=== PATIENT | female | born 1960 | race Two or more races ===

== ENCOUNTER 2024-10-01 07:41 | Outpatient (CLI) | payer OTHER | END 2024-10-01 07:53 | disposition home or self-care (01) | LOC: MRI 07:41 | PROVIDERS: ATTEND Obstetrics & Gynecology | DX: D25.9 Leiomyoma of uterus, unspecified (principal) | CPT/HCPCS: 72197; Q9965 ==

== ENCOUNTER 2025-01-23 19:35 | Inpatient (IN) | payer OTHER ==
[~2025-01-23] VITALS: Ht 157.5 cm; Wt 63.5 kg
[2025-01-23] MEDS ORDERED: BISOPROLOL FUM2.5 MG PO (19:55)
[2025-01-23] MEDS ORDERED: BUSPIRONE HCL5 MG PO (19:55)
[2025-01-23] MEDS ORDERED: TRILIPIX45 MG PO (19:56)
[2025-01-23 22:31] LABS: BASO % 0.6 % (0.1-1.2); EOS # 0.37 (0.04-0.54); EOS % 4.7 % (0.7-7.0); HEMATOCRIT 36.4 % (34.1-44.9); HEMOGLOBIN 12.4 g/dL (11.2-15.7); LYMPH # 2.96 (1.18-3.74); LYMPH % 37.9 % (19.3-53.1); MEAN CORPUSCULAR HEMOGLOBIN 30.2 pg (25.6-32.2); MONO # 0.79 (0.24-0.82); MONO % 10.1 % (4.7-12.5); NEUT # 3.61 (1.56-6.13); NEUT % 46.4 % (34.0-71.1); PLATELET COUNT 212 K/uL (163-369); RED BLOOD COUNT 4.11 M/uL (3.93-5.22); RED CELL DISTRIBUTION WIDTH 13.4 % (11.6-14.4)
[2025-01-23 22:59] LABS: ALBUMIN 3.7 gm/dL (3.4-5.0); BILIRUBIN TOTAL 0.15 mg/dL (0.3-1.2); CALCIUM 9.5 mg/dL (8.5-10.1); CREATININE SERUM 0.76 mg/dL (0.55-1.02); GFR 76.37; GLOBULINA 3.9 G/DL (2.4-3.5); POTASSIUM 3.6 mEq/L (3.5-5.1); TOTAL PROTEIN 7.6 gm/dL (6.4-8.2)
[2025-01-24] MEDS ORDERED: NITROGLYCERIN 0.4 MG/HR PATCH.TD24 TD STA (01:02)
[2025-01-24] MEDS ORDERED: NITROGLYCERIN 0.4 MG/HR PATCH.TD24 TD ONE (01:36)
[2025-01-24] MEDS ORDERED: ENOXAPARIN SODIUM 60 MG/0.6 ML SYRINGE SUBCUTANEO SCH (17:34)
[2025-01-24] MEDS ORDERED: ATORVASTATIN CALCIUM 40 MG TABLET PO SCH (17:35)
[2025-01-24] MEDS ORDERED: ACETAMINOPHEN 500 MG GEL..CAP PO PRN (17:45)
[2025-01-24] MEDS ORDERED: NITROGLYCERIN IN 5 % DEXTROSE 250 ML IV SCH (17:45)
[2025-01-24] MEDS ORDERED: ASPIRIN 325 MG TABLET PO ONE (17:45)
[2025-01-24] MEDS ORDERED: TICAGRELOR 90 MG TABLET PO ONE ×2 (17:45→19:27)
[2025-01-24] MEDS ORDERED: 0.9 % SODIUM CHLORIDE 1,000 ML IV SCH (17:45)
[2025-01-24] MEDS ORDERED: NITROGLYCERIN IN 5 % DEXTROSE 50 MG/250 ML BOTTLE IV ONE (19:27)
[2025-01-24] MEDS ORDERED: ENOXAPARIN SODIUM 60 MG/0.6 ML SYRINGE SUBCUTANEO ONE (19:53)
[2025-01-24 20:18] LABS: PROTHROMBIN TIME 10.9 SECONDS (9.0-11.5)
[2025-01-24 20:20] LABS: D DIMER 0.37 MG/L; PARTIAL THROMBOPLASTIN TIME 24.5 SECONDS (22.0-34.0)
[2025-01-24 20:28] VITALS: BP 138/52; O2SAT 99
[2025-01-24 21:53] VITALS: BP 117/50; O2SAT 98
[2025-01-24 23:40] VITALS: BP 108/44; O2SAT 97
[2025-01-25] VITALS (13 sets, daily range): BP systolic 100–123; BP diastolic 44–68; O2SAT 96–100
[2025-01-25] MEDS ORDERED: TICAGRELOR 90 MG TABLET PO SCH (05:00)
[2025-01-25 06:58] LABS: CHOL HDL RATIO 4.3 (0-5.0); TSH 1.63 uIU/mL (0.358-3.74)
[2025-01-25] MEDS ORDERED: ASPIRIN 81 MG TAB.CHEW PO SCH (09:00)
[2025-01-25] MEDS ORDERED: FAMOTIDINE/PF 20 MG in 0.9 % SODIUM CHLORIDE 8 ML IV PUSH SCH ×2 (09:00→21:00)
[2025-01-25] MEDS ORDERED: PATIENTS OWN MEDICATION (MEDICAMENTO EN PISO) PO SCH (09:00)
[2025-01-25] MEDS ORDERED: BUSPIRONE HCL 5 MG TABLET PO SCH (09:00)
[2025-01-25 14:48] LABS: ALBUMIN 3.8 gm/dL (3.4-5.0); BILIRUBIN TOTAL 0.57 mg/dL (0.3-1.2); CALCIUM 9.4 mg/dL (8.5-10.1); CREATININE SERUM 0.7 mg/dL (0.55-1.02); GFR 83.98; GLOBULINA 3.6 G/DL (2.4-3.5); POTASSIUM 3.76 mEq/L (3.5-5.1); TOTAL PROTEIN 7.4 gm/dL (6.4-8.2)
[2025-01-25 15:08] LABS: BASO % 0.7 % (0.1-1.2); EOS % 2.7 % (0.7-7.0); HEMATOCRIT 38.7 % (34.1-44.9); HEMOGLOBIN 13.1 g/dL (11.2-15.7); LYMPH # 1.58 (1.18-3.74); LYMPH % 21.2 % (19.3-53.1); MEAN CORPUSCULAR HEMOGLOBIN 29.7 pg (25.6-32.2); MONO # 0.81 (0.24-0.82); MONO % 10.9 % (4.7-12.5); NEUT # 4.79 (1.56-6.13); NEUT % 64.4 % (34.0-71.1); PLATELET COUNT 228 K/uL (163-369); RED BLOOD COUNT 4.41 M/uL (3.93-5.22)
[2025-01-26] VITALS (8 sets, daily range): BP systolic 93–123; BP diastolic 51–73; O2SAT 95–98
[2025-01-26] MEDS ORDERED: ISOSORBIDE MONONITRATE 30 MG TABLET PO SCH (09:00)
[2025-01-26] MEDS ORDERED: ATORVASTATIN CALCIUM 40 MG TABLET PO SCH (09:00)
[2025-01-26] MEDS ORDERED: APIXABAN 5 MG TABLET PO SCH (09:00)
[2025-01-26] MEDS ORDERED: PANTOPRAZOLE SODIUM 40 MG TABLET.DR PO SCH (21:00)
[2025-01-27 00:51] VITALS: O2SAT 97; O2SAT 98
[2025-01-27 01:26] VITALS: BP 105/63; O2SAT 97
[2025-01-27 05:00] VITALS: O2SAT 95
[2025-01-27] MEDS ORDERED: ELIQUIS5 MG PO (07:53)
[2025-01-27] MEDS ORDERED: TRILIPIX45 MG PO (07:53)
[2025-01-27] MEDS ORDERED: BUSPIRONE HCL5 MG PO (07:54)
[2025-01-27] MEDS ORDERED: PANTOPRAZOLE SO40 MG PO (07:54)
[2025-01-27] MEDS ORDERED: POM (MEDICAMENTO EN PO (07:54)
[2025-01-27 09:42] VITALS: BP 116/69; O2SAT 97
== END 2025-01-27 11:58 | disposition home or self-care (01) | DRG 66 ==
LOC: ER 20:27 → ICU-2 01-24 17:48 → MEDI 01-25 14:24
PROVIDERS: General Practice; Preventive Medicine Public Health & General Preventive Medicine; ADMIT Internal Medicine; ATTEND Internal Medicine
PROC: B020ZZZ Computerized Tomography (CT Scan) of Brain (ICD-10-PCS; 2025-01-23)
PROC: 4A12X4Z Monitoring of Cardiac Electrical Activity, External Approach (ICD-10-PCS; 2025-01-23)
PROC: B030ZZZ Magnetic Resonance Imaging (MRI) of Brain (ICD-10-PCS; principal; 2025-01-24)
PROC: B246ZZZ Ultrasonography of Right and Left Heart (ICD-10-PCS; 2025-01-24)
PROC: B345ZZZ Ultrasonography of Bilateral Common Carotid Arteries (ICD-10-PCS; 2025-01-24)
PROC: B348ZZZ Ultrasonography of Bilateral Internal Carotid Arteries (ICD-10-PCS; 2025-01-24)
DX: I63.331 Cerebral infarction due to thrombosis of right posterior cerebral artery (principal); I48.0 Paroxysmal atrial fibrillation; I10 Essential (primary) hypertension; E78.5 Hyperlipidemia, unspecified; F41.9 Anxiety disorder, unspecified
CPT/HCPCS: 70544

== ENCOUNTER 2025-02-02 09:20 | Emergency (ER) | payer OTHER ==
[~2025-02-02] VITALS: Ht 157.5 cm; Wt 62.6 kg
[~2025-02-02 09:20] MED LIST: BISOPROLOL FUM2.5 MG PO; BUSPIRONE HCL5 MG PO; ELIQUIS5 MG PO; PANTOPRAZOLE SO40 MG PO; POM (MEDICAMENTO EN PO; TRILIPIX45 MG PO
[2025-02-02] MEDS ORDERED: ONDANSETRON HCL 2 MG/ML VIAL IV ONE (11:15)
[2025-02-02] MEDS ORDERED: ONDANSETRON HCL 2 MG/ML VIAL ONE (11:15)
[2025-02-02 11:50] LABS: BASO % 0.7 % (0.1-1.2); EOS # 0.13 (0.04-0.54); EOS % 1.7 % (0.7-7.0); HEMOGLOBIN 13.7 g/dL (11.2-15.7); LYMPH # 1.72 (1.18-3.74); MEAN CORPUSCULAR HEMOGLOBIN 30.5 pg (25.6-32.2); MONO # 0.59 (0.24-0.82); MONO % 7.9 % (4.7-12.5); NEUT # 4.97 (1.56-6.13); NEUT % 66.4 % (34.0-71.1); PLATELET COUNT 247 K/uL (163-369); RED BLOOD COUNT 4.49 M/uL (3.93-5.22); RED CELL DISTRIBUTION WIDTH 13.1 % (11.6-14.4)
[2025-02-02 12:32] LABS: ALBUMIN 3.8 gm/dL (3.4-5.0); BILIRUBIN TOTAL 0.3 mg/dL (0.3-1.2); CALCIUM 9.9 mg/dL (8.5-10.1); CREATININE SERUM 0.7 mg/dL (0.55-1.02); GFR 83.98; GLOBULINA 4.3 G/DL (2.4-3.5); POTASSIUM 4.35 mEq/L (3.5-5.1); TOTAL PROTEIN 8.1 gm/dL (6.4-8.2)
[2025-02-02] MEDS ORDERED: LORazepam 1 MG TABLET PO ONE (15:45)
== END 2025-02-02 20:42 | disposition home or self-care (01) ==
LOC: ER 09:20
PROVIDERS: Emergency Medicine
DX: R42 Dizziness and giddiness (principal); F41.9 Anxiety disorder, unspecified; I10 Essential (primary) hypertension
CPT/HCPCS: 36415; 70450; 71045; 93005; 96365; 99284; J2405

== ENCOUNTER 2025-03-03 10:44 | Outpatient (CLI) | payer OTHER | END 2025-03-03 11:02 | disposition home or self-care (01) | LOC: MRI 10:44 | PROVIDERS: ATTEND Internal Medicine | DX: G46.4 Cerebellar stroke syndrome (principal) | CPT/HCPCS: 70551 ==

== ENCOUNTER 2025-07-05 10:33 | Outpatient (CLI) | payer OTHER | END 2025-07-05 10:34 | disposition home or self-care (01) | LOC: NUCLEAR 10:33 | PROVIDERS: ATTEND Internal Medicine | DX: I87.2 Venous insufficiency (chronic) (peripheral) (principal) ==

== ENCOUNTER 2025-07-30 20:03 | Emergency (ER) | payer OTHER ==
[~2025-07-30] VITALS: Ht 160 cm; Wt 68.0 kg
[2025-07-30] MEDS ORDERED: ATORVASTATIN CA10 MG (20:08)
[2025-07-30] MEDS ORDERED: BISOPROLOL-HCT1 EACH (20:09)
[2025-07-30] MEDS ORDERED: BISOPROLOL FUM2.5 MG (20:09)
[2025-07-30 21:48] LABS: BASO % 0.4 % (0.1-1.2); EOS # 0.16 (0.04-0.54); EOS % 2.3 % (0.7-7.0); LYMPH # 2.88 (1.18-3.74); LYMPH % 40.9 % (19.3-53.1); MEAN PLATELET VOLUME 10.90 fl (9.4-12.4); MONO # 0.66 (0.24-0.82); MONO % 9.4 % (4.7-12.5); NEUT # 3.29 (1.56-6.13); NEUT % 46.7 % (34.0-71.1); RED CELL DISTRIBUTION WIDTH 13.2 % (11.6-14.4)
[2025-07-30 22:13] LABS: COVID-19 AG NEGATIVE (NEGATIVE)
[2025-07-30 22:18] LABS: INR 1.04
[2025-07-30 22:27] LABS: ALT/SGPT 19.0 U/L (12-78); AST/SGOT 16.0 U/L (15-37); BILIRUBIN TOTAL 0.34 mg/dL (0.3-1.2); BUN CREA RATIO 27.0 (7.0-25.0); CREATININE SERUM 0.55 mg/dL (0.55-1.02); GFR 110.59; GLOBULINA 3.4 G/DL (2.4-3.5); GLUCOSE FASTING 99.0 mg/dL (65-100); OSMOLALITY SERUM 282.0 MOSM/KG (275-295)
== END 2025-07-31 01:06 | disposition home or self-care (01) ==
LOC: ER 20:04
PROVIDERS: Student in an Organized Health Care Education/Training Program
DX: R51.9 Headache, unspecified (principal); R20.2 Paresthesia of skin; Z20.822 Contact with and (suspected) exposure to COVID-19